=== PATIENT | male | born 1940 | race Caucasian/White ===

== ENCOUNTER → 2021-05-30 | Day surgery (SDC) | payer MEDICARE, BC ==
[~2021-05-30] VITALS: Ht 180.3 cm; Wt 108.9 kg
[~2021-05-30] MED LIST: ACTOS30 M1 PO; ASPIRIN FOR CHI81 MG PO; DIABETA5 MG PO; ISO D3 2,000 U1 EACH PO; LIPITOR40 MG PO; LISINOPRIL5 MG PO; LOPRESSOR25 MG PO; METFORMIN500 MG PO; NORVASC5 MG PO; VICODIN ES 7501 TAB PO
[2021-05-30 09:12] VITALS: BP 149/74
[2021-05-30 10:28] VITALS: BP 144/63
[2021-05-30 10:45] VITALS: BP 145/64
[2021-05-30 10:58] VITALS: BP 148/64
== END | disposition home or self-care (01) ==
LOC: SDC 05-25 14:45
PROVIDERS: ATTEND Ophthalmology
DX: E11.36 Type 2 diabetes mellitus with diabetic cataract (principal); H25.812 Combined forms of age-related cataract, left eye; I10 Essential (primary) hypertension; K21.9 Gastro-esophageal reflux disease without esophagitis; Z95.1 Presence of aortocoronary bypass graft; Z87.891 Personal history of nicotine dependence; Z98.890 Other specified postprocedural states; Z79.899 Other long term (current) drug therapy; Z20.822 Contact with and (suspected) exposure to COVID-19

== ENCOUNTER → 2025-02-07 | Outpatient (CLI) | payer MEDICARE, BC | END | disposition home or self-care (01) | LOC: CT 10:43 | PROVIDERS: ATTEND Internal Medicine Critical Care Medicine | DX: R91.1 Solitary pulmonary nodule (principal); J90 Pleural effusion, not elsewhere classified; I25.10 Atherosclerotic heart disease of native coronary artery without angina pectoris; I71.22 Aneurysm of the aortic arch, without rupture; I71.23 Aneurysm of the descending thoracic aorta, without rupture; M47.814 Spondylosis without myelopathy or radiculopathy, thoracic region ==